=== PATIENT | female | born 1975 ===

== ENCOUNTER 2017-09-21 16:06 | Emergency (ER) | payer OTHER ==
[2017-09-21 16:07] VITALS: BMI 20.5
--- NOTE | 2017-09-21 16:47 | ED PDOC ---
Arrival/HPI - General Chief Complaint: Cough, Cold, Congestion Time Seen by Provider: 09/21/17 16:32 Historian: Patient - History of Present Illness Narrative History of Present Illness (Text): 09/21/17 16:41 Pt is a 38 year old female who presents to the ED for a productive cough and MUÑOZ for the past 4 days along with a subjective fever x 1 day. Reports green sputum especially at night. Reports sick contacts at home for URI. Denies chills, n/v/d , back pain, or any other complaints Time/Duration: < week Symptom Onset: Sudden Symptom Course: Unchanged Quality: Aching, Pressure Activities at Onset: Rest Context: Home Past Medical History - Provider Review Nursing Documentation Reviewed: Yes - Travel History Have you recently traveled outside [place] w/in the past 3 mons?: No - Past History Past History: Non-Contributing - Infectious Disease Hx of Infectious Diseases: None - Tetanus Immunization Tetanus Immunization: Unknown - Cardiac Hx Cardiac Disorders: No - Pulmonary Hx Respiratory Disorders: No - Neurological Hx Neurological Disorder: No - HEENT Hx HEENT Disorder: No - Renal Hx Renal Disorder: No - Endocrine/Metabolic Hx Endocrine Disorders: No - Hematological/Oncological Hx Blood Disorders: No - Integumentary Hx Dermatological Disorder: No - Musculoskeletal/Rheumatological Hx Musculoskeletal Disorders: No - Gastrointestinal Hx Gastrointestinal Disorders: No - Genitourinary/Gynecological Hx Genitourinary Disorders: No - Psychiatric Hx Psychophysiologic Disorder: Yes Hx Depression: Yes Hx Substance Use: Yes (HEROIN) Other/Comment: history of substance abuse - Surgical History Hx Orthopedic Surgery: Yes (FEET) - Suicidal Assessment Feels Threatened In Home Enviroment: No Family/Social History - Physician Review Nursing Documentation Reviewed: Yes Family/Social History: Unknown Family HX Smoking Status: Heavy Smoker > 10 Cigarettes Daily Hx Alcohol Use: No Hx Substance Use: Yes (HEROIN) Hx Substance Use Treatment: No Allergies/Home Meds Allergies/Adverse Reactions: Allergies No Known Allergies Allergy (Verified 09/21/17 16:12) Home Medications: Home Meds Medication Instructions Recorded Confirmed Citalopram Hydrobromide [Celexa] 40 mg PO DAILY 02/12/15 09/21/17 Lorazepam [Ativan] 1 mg PO DAILY 02/12/15 09/21/17 Quetiapine Fumarate [Seroquel] 200 mg PO HS 02/12/15 09/21/17 Prazosin HCl [Minipress] 1 mg PO DAILY 09/21/17 09/21/17 Sertraline [Zoloft] 5 mg PO DAILY 09/21/17 09/21/17 Review of Systems - Review of Systems Constitutional: Fatigue, Fevers Eyes: Normal ENT: Normal Respiratory: Normal, Cough Cardiovascular: Chest Pain Gastrointestinal: Normal Genitourinary Female: Normal Musculoskeletal: Normal. absent: Arthralgias, Back Pain, Neck Pain, Joint Swelling, Myalgias, Other Skin: Normal Neurological: Normal Endocrine: Normal Hemo/Lymphatic: Normal Psychiatric: Normal Physical Exam Vital Signs Reviewed: Yes Vital Signs Temp Pulse Resp BP Pulse Ox 09/21/17 18:48 78 18 123/78 99 09/21/17 16:16 98.8 F 88 16 109/76 97 Temperature: Afebrile Blood Pressure: Normal Pulse: Regular Respiratory Rate: Normal Appearance: Positive for: Well-Appearing, Non-Toxic, Comfortable Pain Distress: None Mental Status: Positive for: Alert and Oriented X 3 - Systems Exam Head: Present: Atraumatic, Normocephalic Pupils: Present: PERRL Extroacular Muscles: Present: EOMI Conjunctiva: Present: Normal Ears: Present: Normal Mouth: Present: Moist Mucous Membranes Pharnyx: Present: Normal, ERYTHEMA (mild). No: EXUDATE, TONSILS ENLARGED, Peritonsilar Swelling, Uvular Deviation, Muffled/Hoarse Voice, Strider, Soft Palate/Uvular Edema, Other Neck: Present: Normal Range of Motion Respiratory/Chest: Present: Clear to Auscultation, Good Air Exchange. No: Respiratory Distress, Accessory Muscle Use, Wheezes, Decreased Breath Sounds, Rales, Retracting, Rhonchi, Tachypneic, Tender to Palpation, Other Cardiovascular: Present: Regular Rate and Rhythm, Normal S1, S2. No: Murmurs Abdomen: Present: Normal Bowel Sounds. No: Tenderness, Distention, Peritoneal Signs, Rebound, Guarding, McBurney's Point Tender, Rovsing's Sign Present, Hernias, Feeding Tubes, Ostomy Tubes, Mass/Organomegaly, Scars, Other Back: Present: Normal Inspection Upper Extremity: Present: Normal Inspection. No: Cyanosis, Edema Lower Extremity: Present: Normal Inspection. No: Edema Neurological: Present: GCS=15, CN II-XII Intact, Speech Normal Skin: Present: Warm, Dry, Normal Color. No: Rashes Lymphatic: No: Cervical Adenopathy, Axillary Adenopathy, Inguinal Adenopathy, Other Psychiatric: Present: Alert, Oriented x 3, Normal Insight, Normal Concentration Medical Decision Making ED Course and Treatment: 09/21/17 18:54 Pt is a 38 year old female who presents to the ED for a productive cough and MUÑOZ for the past 4 days along with a subjective fever x 1 day. Plan CXR assess and dispo Progress note HISTORY: chest congestion COMPARISON: Chest radiographs 05/27/2015. TECHNIQUE: Chest PA and lateral FINDINGS: LUNGS: No active pulmonary disease. PLEURA: No significant pleural effusion identified. No pneumothorax apparent. CARDIOVASCULAR: Normal. OSSEOUS STRUCTURES: Reversed S-shaped scoliosis of the thoracolumbar spine again appreciated. VISUALIZED UPPER ABDOMEN: Normal. OTHER FINDINGS: Metallic nipple rings again identified. IMPRESSION: No interval acute cardiopulmonary disease appreciated. Discussed findings with pt and advised Z-john for purulent sputum x4 days F/u with PMD in next few days VSS - RAD Interpretation Radiology Orders: 09/21/17 16:47 CXR [CHEST TWO VIEWS (PA/LAT)] [RAD] Stat Disposition/Present on Arrival - Present on Arrival Any Indicators Present on Arrival: Yes History of DVT/PE: No History of Uncontrolled Diabetes: No Urinary Catheter: No History of Decub. Ulcer: No History Surgical Site Infection Following: None - Disposition Have Diagnosis and Disposition been Completed?: Yes Diagnosis: URI (upper respiratory infection) Disposition: HOME/ ROUTINE Disposition Time: 17:44 Patient Plan: Discharge Condition: STABLE Discharge Instructions (ExitCare): Bacterial Upper Respiratory Infection, Adult Additional Instructions: Dear Georgina, Your were treated in the ED today for a cough and congestion. You otherwise were sitting up, comfortable, without any neck pain. and your chest xray was negative for pneumonia, thus we discharged you home. We recommend the followin. Over the counter Tylenol or Motrin as directed for pain and fever control and Tessalon Perles for cough and Azithromycin antibiotics for 5 days. 2. humidifier daily for breathing relief. 3. drink lots of fluids, and make sure your urinating properly. 4. followup your primary care physician in 1-2 days to review your symptoms. 5. if any worsening pain, fever, chills, nausea, vomiting , difficulty breathing, numbness, tingling, unable to eat/drink or any medical condition then return to the ED. All the best in your recovery ROBERT Albert Prescriptions: Azithromycin 250 mg PO DAILY 5 Days #6 tablet Benzonatate [Tessalon Perle] 100 mg PO Q8 5 Days #15 capsule Referrals: PCP,NO [Primary Care Provider] - Follow up with primary Forms: [facility] ([place]), WORK NOTE
--- NOTE | 2017-09-21 18:54 | RAD ---
HISTORY: chest congestion COMPARISON: Chest radiographs 05/27/2015. TECHNIQUE: Chest PA and lateral FINDINGS: LUNGS: No active pulmonary disease. PLEURA: No significant pleural effusion identified. No pneumothorax apparent. CARDIOVASCULAR: Normal. OSSEOUS STRUCTURES: Reversed S-shaped scoliosis of the thoracolumbar spine again appreciated. VISUALIZED UPPER ABDOMEN: Normal. OTHER FINDINGS: Metallic nipple rings again identified. IMPRESSION: No interval acute cardiopulmonary disease appreciated.
[2017-09-22 11:17] VITALS: BP 123/78; PULSE 78; RESP 18; TEMP 98.8; O2SAT 99
== END 2017-09-21 18:51 | disposition home or self-care (01) ==
LOC: ED 16:06
DX: J06.9 Acute upper respiratory infection, unspecified (principal); F17.210 Nicotine dependence, cigarettes, uncomplicated